=== PATIENT | female | born 1955 | race Caucasian/White ===

== ENCOUNTER 2018-09-09 09:37 | Emergency (ER) | payer BC ==
[2018-09-09 10:10] VITALS: RESP 16; TEMP 98.1
--- NOTE | 2018-09-09 10:25 | ED ---
Lower Extremity Injury HPI - General Chief Complaint: Extremity Injury, Lower Stated Complaint: lt ankle injury Time Seen by Provider: 09/09/18 10:11 Source: patient, RN notes reviewed, old records reviewed Mode of arrival: ambulatory Limitations: no limitations - History of Present Illness Initial Comments: Patient is a edgard 63-year-old female who presents emergency department today with left foot and ankle injury. Patient reports that approximately one week ago she she sprained her ankle. Patient states that she's been resting icing and elevating her foot. Patient states that she continues to have pain with ambulation over the dorsum of her foot as well as the ankle. She is concerned for a possible stress fracture. Patient states that she's had multiple sprained ankles before but always healed quickly the swelling continues to persist and pain as of this time. Patient states she's had a previous broken bones. She denies any peripheral paresthesias. Denies any other injuries at this time. Patient denies any recent fever, chills, shortness of breath, chest pain, back pain, abdominal pain, nausea vomiting, numbness or tingling, dysuria or hematuria, constipation or diarrhea, headaches or visual changes, or any other current symptoms - Related Data Previous Rx's Medication Instructions Recorded Ibuprofen 600 mg PO TID #20 tablet 09/09/18 Allergies Allergy/AdvReac Type Severity Reaction Status Date / Time Sulfa (Sulfonamide Allergy Unknown Verified 09/09/18 10:10 Antibiotics) Review of Systems ROS Statement: Those systems with pertinent positive or pertinent negative responses have been documented in the HPI. ROS Other: All systems not noted in ROS Statement are negative. Past Medical History Past Medical History: No Reported History History of Any Multi-Drug Resistant Organisms: None Reported Past Surgical History: Section, Tonsillectomy Past Psychological History: No Psychological Hx Reported Smoking Status: Former smoker Past Alcohol Use History: Occasional Past Drug Use History: None Reported General Exam - General Exam Comments Initial Comments: Edgard 63-year-old female. Alert and oriented 3. No distress. Limitations: no limitations Head exam: Present: atraumatic Eye exam: Present: normal appearance, PERRL, EOMI. Absent: scleral icterus, conjunctival injection, periorbital swelling ENT exam: Present: normal exam, mucous membranes moist Neck exam: Present: normal inspection. Absent: tenderness, meningismus, lymphadenopathy Respiratory exam: Present: normal lung sounds bilaterally. Absent: respiratory distress, wheezes, rales, rhonchi, stridor Cardiovascular Exam: Present: regular rate, normal rhythm, normal heart sounds. Absent: systolic murmur, diastolic murmur, rubs, gallop, clicks GI/Abdominal exam: Present: soft, normal bowel sounds. Absent: distended, tenderness, guarding, rebound, rigid Extremities exam: Present: normal inspection, full ROM, normal capillary refill. Absent: tenderness, pedal edema, joint swelling, calf tenderness Left Knee exam: Present: normal inspection, full ROM Lower Leg exam: Present: normal inspection, full ROM Ankle exam: Present: tenderness, swelling. Absent: normal inspection, full ROM Foot/Toe exam: Present: normal inspection, full ROM, tenderness (over dorsum of foot) Neurovascular tendon exam: Present: no vascular compromise Gait: observed and limited by pain Back exam: Present: normal inspection Neurological exam: Present: alert, oriented X3, CN II-XII intact Psychiatric exam: Present: normal affect, normal mood Skin exam: Present: warm, dry, intact, normal color. Absent: rash Course Vital Signs 09/09/18 10:07 Temperature 98.1 F Pulse Rate 80 Respiratory 16 Rate Blood Pressure 138/99 O2 Sat by Pulse 100 Oximetry Procedures - Orthopedic Splinting/Casting Injury #1 Side: left Lower Extremity Injury Location: ankle, foot Lower Extremity Immobilizer: posterior splint, Kamar wrap, synthetic pre-padded splint Other Orthopedic Equipment: crutches Medical Decision Making - Medical Decision Making Patient is a 63-year-old female presents emergency Department today one week after spraining her ankle complains of continued pain over the dorsum of her foot over the fourth and fifth metatarsals, as well as some tenderness over the lateral malleolus. X-rays of the foot and ankle are completed this time are negative for any acute osseous lesion. Discussed the possibility for stress fracture. I will put the Patient a posterior splint. I advised Patient that she should follow-up with orthopedic she may need more testing such as an MRI of her foot with the meantime Patient will be immobilized there is a fracture. Patient understands treatment plan will comply. Return parameters were discussed. - Radiology Data Radiology results: report reviewed X-rays left foot negative for acute osseous lesion. X-ray of the ankle shows no acute osseous lesion. Disposition Clinical Impression: Left ankle sprain, Left foot pain Disposition: HOME SELF-CARE Condition: Good Instructions (If sedation given, give patient instructions): Ankle Sprain (ED), Foot Fracture in Adults (ED) Additional Instructions: Patient advised to rest, ice, and elevate the foot. Remain in the splint. Follow-up with surgical specialist if symptoms continue to persist. Patient can return to emergency department if any alarming signs or symptoms occur. Taking Motrin Tylenol for pain. Prescriptions: Ibuprofen 600 mg PO TID #20 tablet Is patient prescribed a controlled substance at d/c from ED?: No Referrals: None,Stated [Primary Care Provider] - 1-2 days Sylvia Montaño I RN [REGISTERED NURSE] - 1-2 days Time of Disposition: 10:53
--- NOTE | 2018-09-09 10:46 | XR ---
EXAMINATION TYPE: XR foot complete LT , 3 VIEWS DATE OF EXAM ORDERED: 09/09/2018 HISTORY: Pain. COMPARISON: None. FINDINGS: No fracture, dislocation or other acute osseous lesion is seen. IMPRESSION: NO ACUTE OSSEOUS LESION.
--- NOTE | 2018-09-09 10:48 | XR ---
EXAMINATION TYPE: XR ankle complete LT , 3 VIEWS DATE OF EXAM ORDERED: 09/09/2018 HISTORY: Pain. COMPARISON: None. FINDINGS: No fracture, dislocation or other acute osseous lesion is seen. No ankle joint effusion is demonstrated. IMPRESSION: NO ACUTE OSSEOUS LESION.
[2018-09-09 11:46] VITALS: BP 128/57; PULSE 78
== END 2018-09-09 11:45 | disposition home or self-care (01) ==
LOC: EC 09:37
DX: S93.402A Sprain of unspecified ligament of left ankle, initial encounter (principal); Z87.891 Personal history of nicotine dependence; Z88.2 Allergy status to sulfonamides; W19.XXXA Unspecified fall, initial encounter
CPT/HCPCS: 29515; 99284